=== PATIENT | male | born 1975 ===

== ENCOUNTER 2021-02-22 07:24 | Outpatient (CLI) | payer OTHER | END 2021-02-22 07:35 | disposition home or self-care (01) | LOC: RX STUDY 07:24 | PROVIDERS: ATTEND Surgery | DX: K94.09 Other complications of colostomy (principal); A08.8 Other specified intestinal infections ==

== ENCOUNTER 2021-03-22 09:30 | Inpatient (IN) | payer OTHER ==
[~2021-03-22] VITALS: Ht 177.8 cm; Wt 100.7 kg
[2021-04-03] MEDS ORDERED: PERCOCET 5-3251 EACH PO (07:41)
== END 2021-04-03 11:26 | disposition home or self-care (01) | DRG 330 ==
LOC: O/R 03-31 06:00 → SURH 03-31 06:00 → O/R 03-31 08:30 → SURH 03-31 13:16
PROVIDERS: ADMIT Surgery; ATTEND Surgery
PROC: 0DTP4ZZ Resection of Rectum, Percutaneous Endoscopic Approach (ICD-10-PCS; 2021-03-31)
PROC: 0DQ84ZZ Repair Small Intestine, Percutaneous Endoscopic Approach (ICD-10-PCS; 2021-03-31)
PROC: 0DBN4ZZ Excision of Sigmoid Colon, Percutaneous Endoscopic Approach (ICD-10-PCS; principal; 2021-03-31 08:30)
DX: K57.20 Diverticulitis of large intestine with perforation and abscess without bleeding (principal); K91.71 Accidental puncture and laceration of a digestive system organ or structure during a digestive system procedure; Z43.3 Encounter for attention to colostomy; K66.0 Peritoneal adhesions (postprocedural) (postinfection)

== ENCOUNTER 2021-03-27 08:06 | Outpatient (CLI) | payer OTHER | END 2021-03-27 08:08 | disposition home or self-care (01) | LOC: RAD 08:06 | PROVIDERS: ATTEND Surgery | DX: K57.30 Diverticulosis of large intestine without perforation or abscess without bleeding (principal); Z93.3 Colostomy status ==

== ENCOUNTER 2024-06-15 12:30 | Outpatient (CLI) | payer OTHER ==
[~2024-06-15 12:30] MED LIST: PERCOCET 5-3251 EACH PO
== END 2024-06-15 12:39 | disposition home or self-care (01) ==
LOC: SONOGRAMA 12:30
PROVIDERS: ATTEND General Practice
DX: R10.2 Pelvic and perineal pain (principal); R10.0 Acute abdomen; N40.0 Benign prostatic hyperplasia without lower urinary tract symptoms

== ENCOUNTER 2024-06-23 08:00 | Outpatient (CLI) | payer OTHER | END 2024-06-23 08:08 | disposition home or self-care (01) | LOC: SONOGRAMA 08:00 | PROVIDERS: ATTEND General Practice | DX: R10.10 Upper abdominal pain, unspecified (principal) ==

== ENCOUNTER 2025-08-17 09:51 | Outpatient (CLI) | payer OTHER | END 2025-08-17 09:55 | disposition home or self-care (01) | LOC: SONOGRAMA 09:51 | PROVIDERS: ATTEND General Practice | DX: N39.9 Disorder of urinary system, unspecified (principal); R31.29 Other microscopic hematuria; R10.20 Pelvic and perineal pain unspecified side; N40.0 Benign prostatic hyperplasia without lower urinary tract symptoms ==